=== PATIENT | male | born 1970 | race Caucasian/White ===

== ENCOUNTER → 2018-06-09 | Outpatient (CLI) | payer BC ==
--- NOTE | 2018-06-09 17:20 | KCIC ---
Two-view orbit radiographs 06/09/2018 CLINICAL HISTORY: Metal exposure to the eyes. Pre-MRI evaluation. Su digital radiographs of the skull were obtained with the patient looking up and down. No opaque foreign body is seen involving either orbit. No fracture is noted. The visualized paranasal sinuses are clear. IMPRESSION: No radiopaque foreign body is seen involving either orbit. Electronically signed by: Swapnil Clay MD (06/09/2018 5:18 PM) [email or web address]
--- NOTE | 2018-06-09 18:02 | KCIC ---
MRI of the lumbar spine without contrast 06/09/2018 CLINICAL HISTORY: Acute on chronic low back pain. TECHNIQUE: Unenhanced T1-weighted and T2-weighted sagittal and axial and inversion recovery sagittal images of the lumbar spine were obtained. FINDINGS: No previous studies are available for comparison. Very mild S-shaped curvature of the thoracolumbar spine is seen. Mild to moderate anterolisthesis of L3 in relation to L4 is noted. Degenerative signal changes and loss of height are seen involving the L3-4 discs. Loss of height of the L5-S1 disc is noted. Degenerative signal changes are seen within the marrow predominantly surrounding the L3-4 disc. The conus medullaris is normal morphology, position, and signal characteristics. At the L1-2 and L2-3 disc spaces there are mild generalized disc bulges. Degenerative changes are seen involving the facet joints bilaterally. There is mild ligamentum flavum hypertrophy bilaterally. These findings do not result in significant central spinal canal or neural foraminal stenosis. At the L3-4 disc space there is a moderate generalized disc bulge. Degenerative changes are seen involving the facet joints bilaterally. There is mild ligamentum flavum hypertrophy bilaterally. These findings when combined result in moderate central spinal canal stenosis with moderate bilateral neural foraminal stenosis seen. At the L4-5 disc space there is a mild to moderate generalized disc bulge. Degenerative changes are seen involving the facet joints bilaterally. There is mild ligamentum flavum hypertrophy bilaterally. These findings when combined result in mild central spinal canal stenosis. No neural foraminal stenosis is seen. At the L5-S1 disc space there is a mild generalized disc bulge. Degenerative changes are seen involving the facet joints bilaterally. These findings do not result in significant central spinal canal or neural foraminal stenosis. IMPRESSION: The changes of degenerative disc disease are seen involving the lumbar spine. These findings result in mild central spinal canal stenosis at L4-5 and moderate central spinal canal stenosis with moderate bilateral neural foraminal stenosis at L3-4. Electronically signed by: Swapnil Clay MD (06/09/2018 5:59 PM) [id number]
== END | disposition home or self-care (01) ==
LOC: KCIC MRI 16:48
PROVIDERS: ATTEND Pain Medicine Pain Medicine
DX: Z01.00 Encounter for examination of eyes and vision without abnormal findings (principal); M51.26 Other intervertebral disc displacement, lumbar region; M48.061 Spinal stenosis, lumbar region without neurogenic claudication
CPT/HCPCS: 70030; 72148